=== PATIENT | male | born 1975 | race Two or more races ===

== ENCOUNTER → 2021-05-24 | Outpatient (CLI) | payer OTHER ==
[2021-05-24 10:50] LABS: Basophils # (auto) 0 10 ^3/uL (0-0.2); Basophils % (auto) 0.8 % (0.0-2.0); Eosinophils # (auto) 0 10 ^3/uL (0-0.8); Hematocrit 42.7 % (41.0-53.0); Hemoglobin 14.8 g/dL (13.5-17.5); Lymphocytes # (auto) 1.1 10 ^3/uL (0.4-5.4); Lymphocytes % (auto) 22.5 % (10.0-50.0); Mean Corpuscular Hemoglobin 32.5 pg (28.0-32.0); Mean Corpuscular Hgb Conc. 34.6 g/dL (32.0-36.0); Monocytes # (auto) 0.4 10 ^3/uL (0-1.3); Monocytes % (auto) 7.2 % (0.0-12.0); Neutrophils # (auto) 3.5 10 ^3/uL (1.6-8.6); Neutrophils % (auto) 68.5 % (37.0-80.0); Platelet Count (auto) 187 10^3/uL (140-450); Red Blood Cells 4.54 10^6/uL (4.5-5.90); Red Cell Distribution Width 12.9 % (11.8-14.3); White Blood Cell 5.1 10^3/uL (4.4-10.8)
[2021-05-24 11:41] LABS: Calcium 9.4 mg/dL (8.5-10.1); Potassium 4.4 mmol/L (3.5-5.1)
[2021-05-24 11:47] LABS: BUN/Creatinine Ratio 16.3; Bilirubin, Total 0.7 mg/dL (0.2-1.0); Total Protein 7.6 g/dL (6.4-8.2)
== END | disposition home or self-care (01) ==
LOC: LAB 10:33
PROVIDERS: ATTEND Nurse Practitioner Family
DX: K21.00 Gastro-esophageal reflux disease with esophagitis, without bleeding (principal); E55.9 Vitamin D deficiency, unspecified; R19.7 Diarrhea, unspecified; Z91.09 Other allergy status, other than to drugs and biological substances
CPT/HCPCS: 36415; 80053; 80061; 82306; 85025; 85049

== ENCOUNTER 2021-09-24 06:39 | Inpatient (IN) | payer OTHER ==
[~2021-09-24] VITALS: Ht 182.9 cm; Wt 66.2 kg
[2021-09-24 07:44] LABS: Basophils # (auto) 0 10 ^3/uL (0-0.2); Basophils % (auto) 0.1 % (0.0-2.0); Eosinophils # (auto) 0 10 ^3/uL (0-0.8); Hematocrit 40.9 % (41.0-53.0); Hemoglobin 14.4 g/dL (13.5-17.5); Lymphocytes # (auto) 0.4 10 ^3/uL (0.4-5.4); Lymphocytes % (auto) 2.5 % (10.0-50.0); Mean Corpuscular Hemoglobin 32.6 pg (28.0-32.0); Mean Corpuscular Hgb Conc. 35.2 g/dL (32.0-36.0); Mean Corpuscular Volume 92.4 fL (80.0-100.0); Monocytes # (auto) 0.4 10 ^3/uL (0-1.3); Monocytes % (auto) 2.7 % (0.0-12.0); Neutrophils # (auto) 13.5 10 ^3/uL (1.6-8.6); Neutrophils % (auto) 94.7 % (37.0-80.0); Nucleated Red Blood Cells % 0.1 %; Red Blood Cells 4.43 10^6/uL (4.5-5.90); White Blood Cell 14.2 10^3/uL (4.4-10.8)
[2021-09-24] MEDS ORDERED: DexAMETHasone SOD PHOS 10MG/1ML VIAL INJ IV ONE (07:45)
[2021-09-24] MEDS ORDERED: ZINC SULFATE 220mg CAP or TAB PO ONE (07:45)
[2021-09-24] MEDS ORDERED: AZITHROMYCIN 500MG/ 250ML 250 ML IV ONE (07:45)
[2021-09-24] MEDS ORDERED: cefTRIAXone 1GM/50ML D5W 50 ML IV ONE (07:45)
[2021-09-24] MEDS ORDERED: ASCORBIC ACID 500 MG TAB PO ONE (07:45)
[2021-09-24 08:02] LABS: Albumin 2.6 g/dL (3.4-5.0); Calcium 9.1 mg/dL (8.5-10.1); Potassium 4.4 mmol/L (3.5-5.1)
[2021-09-24 08:10] LABS: BUN/Creatinine Ratio 17.8; Bilirubin, Total 0.5 mg/dL (0.2-1.0); CRP High Sensitivity 10.6 mg/dL (< 0.3); Total Protein 7.4 g/dL (6.4-8.2)
[2021-09-24] MEDS ORDERED: MORPHINE SULFATE INJECTION 2 MG/ML SYRG IV PRN ×3 (09:45→16:00)
[2021-09-24] MEDS ORDERED: NITROGLYCERIN 0.4 MG SL TAB SL PRN ×2 (09:45→15:45)
[2021-09-24] MEDS ORDERED: ONDANSETRON HCL 4 MG/2 ML VIAL IV PRN ×2 (12:45→16:00)
[2021-09-24] MEDS ORDERED: ONDANSETRON HCL 4 MG/2 ML VIAL ONE (12:45)
[2021-09-24] MEDS ORDERED: ONDANSETRON HCL 4 MG/2 ML VIAL IV ONE (13:00)
[2021-09-24] MEDS ORDERED: ACETAMINOPHEN 500 MG TAB PO PRN (15:45)
[2021-09-24] MEDS ORDERED: REMDESIVIR PER PHARMACY 0 ML IV SCH (15:45)
[2021-09-24] MEDS ORDERED: PROMETHAZINE-DM 5 ML ORAL SYRUP PO ONE (16:00)
[2021-09-24 16:19] LABS: Urine Bacteria NONE SEEN /hpf (None Seen); Urine Blood Negative /uL (Negative); Urine Hyaline Cast FEW /lpf (0 - 2); Urine Mucus FEW (None Seen); Urine Specific Gravity 1.015 (1.001-1.035); Urine WBC 1 /hpf (0 - 3)
[2021-09-24] MEDS ORDERED: REMDESIVIR 200 MG in NS 210ml LOADING DOSE ADULT IV ONE (18:30)
[2021-09-24] MEDS: BUDESONIDE (INHALATION) 180 MCG IH IN SCH (18:56)
[2021-09-24] MEDS: ALBUTEROL SULF HFA 90MCG INH 200DOSE IN PRN (18:56)
[2021-09-24 20:34] VITALS: BP 114/74
[2021-09-24 21:05] VITALS: BP 110/73
[2021-09-24 22:00] VITALS: BP 110/73
[2021-09-24] MEDS: DOXYCYCLINE 100MG/250ML 250 ML IV SCH (22:00)
[2021-09-24] MEDS: ENOXAPARIN SOD 40 MG/0.4 ML SYRINGE SC SCH (22:00)
[2021-09-24] MEDS: FAMOTIDINE (10MG/ML) 2ML VL IV SCH (22:00)
[2021-09-25] MEDS ORDERED: PROMETHAZINE-DM 5 ML ORAL SYRUP PO PRN
[2021-09-25 00:29] LABS: Albumin 2.2 g/dL (3.4-5.0); BUN/Creatinine Ratio 23.7; Calcium 8.3 mg/dL (8.5-10.1); Magnesium 2.4 mg/dL (1.6-2.6); Potassium 4.4 mmol/L (3.5-5.1)
[2021-09-25 00:37] LABS: Bilirubin, Total 0.3 mg/dL (0.2-1.0); CRP High Sensitivity 7.49 mg/dL (< 0.3); Total Protein 6.6 g/dL (6.4-8.2)
[2021-09-25 00:38] LABS: Thyroid Stimulating Hormone 0.11 uIU/mL (0.358-3.74)
[2021-09-25 05:27] VITALS: BP 107/67
[2021-09-25 09:00] VITALS: BP 92/52
[2021-09-25] MEDS: CHOLECALCIFEROL (VITD3) 2,000 UNIT CAP/TAB PO SCH (09:01)
[2021-09-25] MEDS: ZINC SULFATE 220mg CAP or TAB PO SCH (09:02)
[2021-09-25] MEDS: ENOXAPARIN SOD 40 MG/0.4 ML SYRINGE SC SCH ×2 (09:02→21:08)
[2021-09-25] MEDS: IVERMECTIN 3 MG TAB PO SCH (09:02)
[2021-09-25] MEDS: DOXYCYCLINE 100MG/250ML 250 ML IV SCH ×2 (09:03→21:08)
[2021-09-25] MEDS: FAMOTIDINE (10MG/ML) 2ML VL IV SCH ×3 (09:05→22:00)
[2021-09-25] MEDS: BUDESONIDE (INHALATION) 180 MCG IH IN SCH ×2 (09:41→22:07)
[2021-09-25] MEDS: ALBUTEROL SULF HFA 90MCG INH 200DOSE IN PRN ×2 (09:41→22:07)
[2021-09-25] MEDS ORDERED: DexAMETHasone SOD PHOS 10MG/1ML VIAL INJ IV SCH (10:00)
[2021-09-25 10:48] LABS: Basophils # (auto) 0 10 ^3/uL (0-0.2); Basophils % (auto) 0.1 % (0.0-2.0); Eosinophils # (auto) 0 10 ^3/uL (0-0.8); Hematocrit 42.8 % (41.0-53.0); Hemoglobin 14.5 g/dL (13.5-17.5); Lymphocytes # (auto) 0.5 10 ^3/uL (0.4-5.4); Lymphocytes % (auto) 4.5 % (10.0-50.0); Mean Corpuscular Hemoglobin 31.5 pg (28.0-32.0); Mean Corpuscular Hgb Conc. 33.8 g/dL (32.0-36.0); Mean Corpuscular Volume 93.3 fL (80.0-100.0); Monocytes # (auto) 0.4 10 ^3/uL (0-1.3); Monocytes % (auto) 3.6 % (0.0-12.0); Neutrophils # (auto) 10.6 10 ^3/uL (1.6-8.6); Neutrophils % (auto) 91.8 % (37.0-80.0); Nucleated Red Blood Cells % 0.1 %; Red Blood Cells 4.59 10^6/uL (4.5-5.90); Red Cell Distribution Width 13.1 % (11.8-14.3); White Blood Cell 11.5 10^3/uL (4.4-10.8)
[2021-09-25 11:12] LABS: INR 1.04 (0.9-1.15); Partial Thromboplastin Time 38.9 sec (23.6-33.0)
[2021-09-25 11:19] LABS: Chloride 104 mmol/L (98-107); Potassium 4.1 mmol/L (3.5-5.1); Sodium 137 mmol/L (136-145)
[2021-09-25 11:30] LABS: Alanine Aminotransferase 26 U/L (16-61); Albumin 2.3 g/dL (3.4-5.0); Alkaline Phosphatase 51 U/L (45-117); Anion Gap 6 (5-15); Aspartate Aminotransferase 41 U/L (15-37); BUN/Creatinine Ratio 17.2; Bilirubin, Total 0.4 mg/dL (0.2-1.0); Blood Urea Nitrogen 16 mg/dL (7-18); Calcium 8.7 mg/dL (8.5-10.1); Carbon Dioxide 27 mmol/L (21-32); Cholesterol 128 mg/dL (< 200); GFR African American 112 mL/min; GFR Non-African American 93 mL/min; Glucose 113 mg/dL (74-106); HDL Cholesterol 37 mg/dL (40-59); LDL Cholesterol 78 mg/dL (< 100); Magnesium 2.6 mg/dL (1.6-2.6); Phosphorus 3.2 mg/dL (2.5-4.90); Triglycerides 180 mg/dL (< 150)
[2021-09-25 12:31] VITALS: BP 104/74
[2021-09-25] MEDS: REMDESIVIR 100mg 100 MG in SODIUM CHL 0.9% 230 ML IV SCH (15:59)
[2021-09-25 17:00] VITALS: BP 100/65
[2021-09-25] MEDS ORDERED: ACETAMINOPHEN 500 MG TAB PO PRN (17:30)
[2021-09-25 22:00] VITALS: BP 104/60
[2021-09-26] VITALS (7 sets, daily range): BP systolic 94–118; BP diastolic 60–79
[2021-09-26] MEDS: BUDESONIDE (INHALATION) 180 MCG IH IN SCH ×2 (06:11→20:18)
[2021-09-26] MEDS: ALBUTEROL SULF HFA 90MCG INH 200DOSE IN PRN ×2 (06:11→20:55)
[2021-09-26] MEDS: FAMOTIDINE (10MG/ML) 2ML VL IV SCH ×2 (10:00→21:35)
[2021-09-26] MEDS ORDERED: FUROSEMIDE 20 MG/2 ML VIAL IV ONE (10:30)
[2021-09-26] MEDS ORDERED: POTASSIUM CHL 20 Meq TABLET PO ONE (10:30)
[2021-09-26 10:57] LABS: Calcium 8.8 mg/dL (8.5-10.1)
[2021-09-26 10:59] LABS: BUN/Creatinine Ratio 18.9
[2021-09-26] MEDS: ZINC SULFATE 220mg CAP or TAB PO SCH (11:16)
[2021-09-26] MEDS: CHOLECALCIFEROL (VITD3) 2,000 UNIT CAP/TAB PO SCH (11:17)
[2021-09-26] MEDS: IVERMECTIN 3 MG TAB PO SCH (11:17)
[2021-09-26] MEDS: ENOXAPARIN SOD 40 MG/0.4 ML SYRINGE SC SCH ×2 (11:17→21:35)
[2021-09-26] MEDS: DOXYCYCLINE 100MG/250ML 250 ML IV SCH ×2 (11:18→21:34)
[2021-09-26] MEDS: REMDESIVIR 100mg 100 MG in SODIUM CHL 0.9% 230 ML IV SCH (15:06)
[2021-09-26] MEDS: DexAMETHasone SOD PHOS 10MG/1ML VIAL INJ IV SCH (21:34)
[2021-09-27 05:00] VITALS: BP 91/55
[2021-09-27 05:58] LABS: Hematocrit 44.7 % (41.0-53.0); Hemoglobin 15.3 g/dL (13.5-17.5); Mean Corpuscular Hemoglobin 31.9 pg (28.0-32.0); Mean Corpuscular Hgb Conc. 34.1 g/dL (32.0-36.0); Mean Corpuscular Volume 93.5 fL (80.0-100.0); Red Blood Cells 4.78 10^6/uL (4.5-5.90); White Blood Cell 8.5 10^3/uL (4.4-10.8)
[2021-09-27 06:20] LABS: BUN/Creatinine Ratio 23.5; Calcium 9.1 mg/dL (8.5-10.1); Potassium 5.1 mmol/L (3.5-5.1)
[2021-09-27 06:34] LABS: Basophils % (manual) 0 (0.0-2.0); Blast Cells 0; Eosinophils % (manual) 0 (0-7); Metamyelocytes % 0; Myelocytes % 0; Promyelocytes % 0; Reactive Lymphocytes 0
[2021-09-27] MEDS: BUDESONIDE (INHALATION) 180 MCG IH IN SCH ×2 (07:49→22:42)
[2021-09-27 08:00] VITALS: BP 105/67
[2021-09-27 08:48] LABS: Band Neutrophils % (manual) 2; Lymphocytes % (manual) 8 (10.0-50.0); Monocytes % (manual) 8 (0-12)
[2021-09-27] MEDS: FAMOTIDINE (10MG/ML) 2ML VL IV SCH ×2 (09:41→21:49)
[2021-09-27] MEDS: DexAMETHasone SOD PHOS 10MG/1ML VIAL INJ IV SCH ×2 (09:41→21:40)
[2021-09-27] MEDS: DOXYCYCLINE 100MG/250ML 250 ML IV SCH ×2 (09:41→21:41)
[2021-09-27] MEDS: IVERMECTIN 3 MG TAB PO SCH (09:42)
[2021-09-27] MEDS: ZINC SULFATE 220mg CAP or TAB PO SCH (09:42)
[2021-09-27] MEDS: CHOLECALCIFEROL (VITD3) 2,000 UNIT CAP/TAB PO SCH (09:43)
[2021-09-27] MEDS: ENOXAPARIN SOD 40 MG/0.4 ML SYRINGE SC SCH ×2 (09:43→21:41)
[2021-09-27 11:58] VITALS: BP 101/62
[2021-09-27] MEDS ORDERED: FUROSEMIDE 20 MG/2 ML VIAL IV ONE (12:00)
[2021-09-27] MEDS ORDERED: SALINE 0.65 % NASAL SPRAY 45ML BOTTLE EACHNOSTRI ONE (12:00)
[2021-09-27] MEDS: REMDESIVIR 100mg 100 MG in SODIUM CHL 0.9% 230 ML IV SCH (15:44)
[2021-09-27 16:24] VITALS: BP 112/75
[2021-09-27] MEDS: SALINE 0.65 % NASAL SPRAY 45ML BOTTLE EACHNOSTRI SCH ×2 (18:00→21:40)
[2021-09-27 22:00] VITALS: BP 112/73
[2021-09-27] MEDS: ALBUTEROL SULF HFA 90MCG INH 200DOSE IN PRN (22:42)
[2021-09-28 00:14] VITALS: BP 112/73
[2021-09-28 05:26] VITALS: BP 99/56
[2021-09-28] MEDS: SALINE 0.65 % NASAL SPRAY 45ML BOTTLE EACHNOSTRI SCH ×4 (06:00→21:48)
[2021-09-28] MEDS: BUDESONIDE (INHALATION) 180 MCG IH IN SCH ×2 (06:24→20:10)
[2021-09-28] MEDS: ALBUTEROL SULF HFA 90MCG INH 200DOSE IN PRN ×2 (06:24→20:11)
[2021-09-28 06:56] LABS: Basophils # (auto) 0 10 ^3/uL (0-0.2); Basophils % (auto) 0.1 % (0.0-2.0); Eosinophils # (auto) 0 10 ^3/uL (0-0.8); Hematocrit 43.3 % (41.0-53.0); Hemoglobin 14.4 g/dL (13.5-17.5); Lymphocytes # (auto) 0.6 10 ^3/uL (0.4-5.4); Lymphocytes % (auto) 6.3 % (10.0-50.0); Mean Corpuscular Hemoglobin 30.8 pg (28.0-32.0); Mean Corpuscular Hgb Conc. 33.3 g/dL (32.0-36.0); Mean Corpuscular Volume 92.5 fL (80.0-100.0); Monocytes # (auto) 0.7 10 ^3/uL (0-1.3); Monocytes % (auto) 7.2 % (0.0-12.0); Neutrophils % (auto) 86.4 % (37.0-80.0); Nucleated Red Blood Cells % 0.1 %; Red Blood Cells 4.69 10^6/uL (4.5-5.90); Red Cell Distribution Width 12.8 % (11.8-14.3); White Blood Cell 9.3 10^3/uL (4.4-10.8)
[2021-09-28 07:17] LABS: BUN/Creatinine Ratio 24.7; Potassium 4.3 mmol/L (3.5-5.1)
[2021-09-28 09:10] VITALS: BP 93/57
[2021-09-28] MEDS: DOXYCYCLINE 100MG/250ML 250 ML IV SCH ×2 (09:17→21:49)
[2021-09-28] MEDS: ENOXAPARIN SOD 40 MG/0.4 ML SYRINGE SC SCH ×2 (09:18→21:49)
[2021-09-28] MEDS: DexAMETHasone SOD PHOS 10MG/1ML VIAL INJ IV SCH ×2 (09:18→21:48)
[2021-09-28] MEDS: IVERMECTIN 3 MG TAB PO SCH (09:18)
[2021-09-28] MEDS: ZINC SULFATE 220mg CAP or TAB PO SCH (09:18)
[2021-09-28] MEDS: CHOLECALCIFEROL (VITD3) 2,000 UNIT CAP/TAB PO SCH (09:18)
[2021-09-28] MEDS: FAMOTIDINE (10MG/ML) 2ML VL IV SCH ×2 (09:19→21:49)
[2021-09-28] MEDS ORDERED: FUROSEMIDE 20 MG TAB PO ONE (11:00)
[2021-09-28] MEDS ORDERED: POTASSIUM CHL 20 Meq TABLET PO ONE (11:00)
[2021-09-28 13:20] VITALS: BP 109/68
[2021-09-28] MEDS: REMDESIVIR 100mg 100 MG in SODIUM CHL 0.9% 230 ML IV SCH (14:32)
[2021-09-28 16:46] VITALS: BP 119/71
[2021-09-28 22:00] VITALS: BP 115/74
[2021-09-29 05:00] VITALS: BP 108/70
[2021-09-29] MEDS: SALINE 0.65 % NASAL SPRAY 45ML BOTTLE EACHNOSTRI SCH ×4 (05:45→22:00)
[2021-09-29] MEDS: BUDESONIDE (INHALATION) 180 MCG IH IN SCH ×3 (06:40→22:16)
[2021-09-29] MEDS: ALBUTEROL SULF HFA 90MCG INH 200DOSE IN PRN ×2 (06:40→22:17)
[2021-09-29 09:00] VITALS: BP 83/53
[2021-09-29] MEDS: FAMOTIDINE (10MG/ML) 2ML VL IV SCH ×2 (10:00→20:55)
[2021-09-29] MEDS: DexAMETHasone SOD PHOS 10MG/1ML VIAL INJ IV SCH ×2 (10:29→20:55)
[2021-09-29] MEDS: DOXYCYCLINE 100MG/250ML 250 ML IV SCH (10:29)
[2021-09-29] MEDS: ZINC SULFATE 220mg CAP or TAB PO SCH (10:30)
[2021-09-29] MEDS: FUROSEMIDE 20 MG TAB PO SCH (10:30)
[2021-09-29] MEDS: POTASSIUM CHL 20 Meq TABLET PO SCH (10:30)
[2021-09-29] MEDS: CHOLECALCIFEROL (VITD3) 2,000 UNIT CAP/TAB PO SCH (10:31)
[2021-09-29] MEDS: ENOXAPARIN SOD 40 MG/0.4 ML SYRINGE SC SCH ×2 (10:31→20:55)
[2021-09-29] MEDS: IVERMECTIN 3 MG TAB PO SCH (10:31)
[2021-09-29 12:42] VITALS: BP 120/62
[2021-09-29 14:35] LABS: BUN/Creatinine Ratio 20.7; Calcium 8.8 mg/dL (8.5-10.1)
[2021-09-29 17:18] VITALS: BP 113/64
[2021-09-29 20:00] VITALS: BP 105/85
[2021-09-29 22:00] VITALS: BP 120/73
[2021-09-30 05:00] VITALS: BP 107/68
[2021-09-30] MEDS: SALINE 0.65 % NASAL SPRAY 45ML BOTTLE EACHNOSTRI SCH ×4 (06:14→22:00)
[2021-09-30] MEDS: BUDESONIDE (INHALATION) 180 MCG IH IN SCH ×3 (07:20→20:43)
[2021-09-30] MEDS: ALBUTEROL SULF HFA 90MCG INH 200DOSE IN PRN ×2 (07:21→20:43)
[2021-09-30 08:00] VITALS: BP 103/68
[2021-09-30 09:00] VITALS: BP 103/68
[2021-09-30] MEDS: FAMOTIDINE (10MG/ML) 2ML VL IV SCH ×2 (10:00→22:27)
[2021-09-30] MEDS: POTASSIUM CHL 20 Meq TABLET PO SCH (10:11)
[2021-09-30] MEDS: DexAMETHasone SOD PHOS 10MG/1ML VIAL INJ IV SCH ×2 (10:11→22:27)
[2021-09-30] MEDS: ZINC SULFATE 220mg CAP or TAB PO SCH (10:11)
[2021-09-30] MEDS: CHOLECALCIFEROL (VITD3) 2,000 UNIT CAP/TAB PO SCH (10:12)
[2021-09-30] MEDS: FUROSEMIDE 20 MG TAB PO SCH (10:12)
[2021-09-30] MEDS: ENOXAPARIN SOD 40 MG/0.4 ML SYRINGE SC SCH ×2 (10:12→22:28)
[2021-09-30] MEDS ORDERED: DOXYCYCLINE 100MG/250ML 250 ML IV ONE (11:15)
[2021-09-30 12:41] VITALS: BP 117/71
[2021-09-30] MEDS ORDERED: IOHEXOL 350 MG/ML 100ML IJ ONE (16:45)
[2021-09-30 17:00] VITALS: BP 119/76
[2021-09-30 17:32] LABS: Potassium 4.4 mmol/L (3.5-5.1)
[2021-09-30 17:37] LABS: INR 1.1 (0.9-1.15)
[2021-09-30 17:41] LABS: CRP High Sensitivity 8.24 mg/dL (< 0.3)
[2021-09-30 22:00] VITALS: BP 101/62
[2021-09-30] MEDS ORDERED: DOXYCYCLINE 100MG/250ML 250 ML IV SCH (22:00)
[2021-10-01 00:03] VITALS: BP 119/76
[2021-10-01 05:00] VITALS: BP 101/66
[2021-10-01] MEDS: SALINE 0.65 % NASAL SPRAY 45ML BOTTLE EACHNOSTRI SCH ×4 (06:13→21:27)
[2021-10-01] MEDS: ALBUTEROL SULF HFA 90MCG INH 200DOSE IN PRN (07:49)
[2021-10-01] MEDS: BUDESONIDE (INHALATION) 180 MCG IH IN SCH ×2 (07:49→21:18)
[2021-10-01 08:00] VITALS: BP_SYST 103; BP_SYST 109; BP_DIAS 68; BP_DIAS 70
[2021-10-01] MEDS: ZINC SULFATE 220mg CAP or TAB PO SCH (09:59)
[2021-10-01] MEDS: FAMOTIDINE (10MG/ML) 2ML VL IV SCH ×3 (09:59→21:44)
[2021-10-01] MEDS: POTASSIUM CHL 20 Meq TABLET PO SCH (09:59)
[2021-10-01] MEDS: FUROSEMIDE 20 MG TAB PO SCH (10:00)
[2021-10-01] MEDS: CHOLECALCIFEROL (VITD3) 2,000 UNIT CAP/TAB PO SCH (10:00)
[2021-10-01] MEDS: DexAMETHasone SOD PHOS 4 MG/1ML SDV INJ IV SCH ×2 (10:25→21:39)
[2021-10-01] MEDS: ENOXAPARIN SOD 40 MG/0.4 ML SYRINGE SC SCH ×2 (10:25→21:44)
[2021-10-01 13:00] VITALS: BP 108/70
[2021-10-01] MEDS ORDERED: MEROPENEM 1GM IVPB 100 ML IV ONE (13:00)
[2021-10-01 16:58] LABS: Potassium 4.4 mmol/L (3.5-5.1)
[2021-10-01 17:00] VITALS: BP 115/48
[2021-10-01 17:10] LABS: BUN/Creatinine Ratio 23.8; CRP High Sensitivity 3.05 mg/dL (< 0.3); Calcium 8.7 mg/dL (8.5-10.1)
[2021-10-01] MEDS: MEROPENEM 1GM IVPB 100 ML IV SCH (21:42)
[2021-10-01 22:00] VITALS: BP 110/77
[2021-10-01] MEDS ORDERED: TOCILIZUMAB 400 MG in SODIUM CHL 0.9% 80 ML IV SCH (22:00)
[2021-10-02 05:23] VITALS: BP 112/80
[2021-10-02] MEDS: BUDESONIDE (INHALATION) 180 MCG IH IN SCH ×2 (06:09→20:37)
[2021-10-02] MEDS: ALBUTEROL SULF HFA 90MCG INH 200DOSE IN PRN ×2 (06:09→20:37)
[2021-10-02] MEDS: SALINE 0.65 % NASAL SPRAY 45ML BOTTLE EACHNOSTRI SCH ×4 (06:37→21:23)
[2021-10-02] MEDS: MEROPENEM 1GM IVPB 100 ML IV SCH ×3 (06:40→21:31)
[2021-10-02 09:00] VITALS: BP 110/74
[2021-10-02] MEDS: ZINC SULFATE 220mg CAP or TAB PO SCH (11:08)
[2021-10-02] MEDS: FAMOTIDINE (10MG/ML) 2ML VL IV SCH ×2 (11:08→21:38)
[2021-10-02] MEDS: DexAMETHasone SOD PHOS 4 MG/1ML SDV INJ IV SCH ×2 (11:08→21:30)
[2021-10-02] MEDS: ENOXAPARIN SOD 40 MG/0.4 ML SYRINGE SC SCH ×2 (11:09→21:30)
[2021-10-02] MEDS: CHOLECALCIFEROL (VITD3) 2,000 UNIT CAP/TAB PO SCH (11:09)
[2021-10-02] MEDS: POTASSIUM CHL 20 Meq TABLET PO SCH (11:09)
[2021-10-02] MEDS: FUROSEMIDE 20 MG TAB PO SCH (11:09)
[2021-10-02 13:00] VITALS: BP 124/79
[2021-10-02 13:39] LABS: Basophils # (auto) 0.1 10 ^3/uL (0-0.2); Basophils % (auto) 0.6 % (0.0-2.0); Eosinophils # (auto) 0 10 ^3/uL (0-0.8); Eosinophils % (auto) 0.1 % (0.0-7.0); Hematocrit 41.3 % (41.0-53.0); Hemoglobin 14.1 g/dL (13.5-17.5); Lymphocytes # (auto) 0.4 10 ^3/uL (0.4-5.4); Mean Corpuscular Hemoglobin 31.3 pg (28.0-32.0); Mean Corpuscular Hgb Conc. 34.1 g/dL (32.0-36.0); Mean Corpuscular Volume 91.5 fL (80.0-100.0); Monocytes # (auto) 0.7 10 ^3/uL (0-1.3); Monocytes % (auto) 3.6 % (0.0-12.0); Neutrophils # (auto) 19.7 10 ^3/uL (1.6-8.6); Neutrophils % (auto) 93.7 % (37.0-80.0); Red Blood Cells 4.51 10^6/uL (4.5-5.90); Red Cell Distribution Width 13.2 % (11.8-14.3)
[2021-10-02 13:58] LABS: Calcium 8.5 mg/dL (8.5-10.1); Potassium 4.5 mmol/L (3.5-5.1)
[2021-10-02 14:00] LABS: BUN/Creatinine Ratio 28.1
[2021-10-02 17:00] VITALS: BP 131/91
[2021-10-02 22:00] VITALS: BP 114/71
[2021-10-03 05:24] VITALS: BP 110/68
[2021-10-03] MEDS: SALINE 0.65 % NASAL SPRAY 45ML BOTTLE EACHNOSTRI SCH ×4 (05:48→21:21)
[2021-10-03] MEDS: MEROPENEM 1GM IVPB 100 ML IV SCH ×3 (06:17→21:21)
[2021-10-03] MEDS: ALBUTEROL SULF HFA 90MCG INH 200DOSE IN PRN ×2 (07:09→14:42)
[2021-10-03] MEDS: BUDESONIDE (INHALATION) 180 MCG IH IN SCH ×3 (07:09→22:32)
[2021-10-03 09:30] VITALS: BP 106/72
[2021-10-03] MEDS: FAMOTIDINE (10MG/ML) 2ML VL IV SCH ×3 (10:00→22:00)
[2021-10-03] MEDS: DexAMETHasone SOD PHOS 4 MG/1ML SDV INJ IV SCH ×2 (10:24→21:21)
[2021-10-03] MEDS: ZINC SULFATE 220mg CAP or TAB PO SCH (10:24)
[2021-10-03] MEDS: POTASSIUM CHL 20 Meq TABLET PO SCH (10:26)
[2021-10-03] MEDS: FUROSEMIDE 20 MG TAB PO SCH (10:27)
[2021-10-03] MEDS: CHOLECALCIFEROL (VITD3) 2,000 UNIT CAP/TAB PO SCH (10:27)
[2021-10-03] MEDS: ENOXAPARIN SOD 40 MG/0.4 ML SYRINGE SC SCH ×2 (10:28→21:22)
[2021-10-03] MEDS ORDERED: ACETYLCYSTEINE 20%(200MG/ML) SOL 4ML NEB ONE (10:45)
[2021-10-03 11:05] LABS: Basophils # (auto) 0 10 ^3/uL (0-0.2); Basophils % (auto) 0.2 % (0.0-2.0); Eosinophils # (auto) 0 10 ^3/uL (0-0.8); Eosinophils % (auto) 0.2 % (0.0-7.0); Hematocrit 44.4 % (41.0-53.0); Lymphocytes # (auto) 0.9 10 ^3/uL (0.4-5.4); Lymphocytes % (auto) 5.6 % (10.0-50.0); Mean Corpuscular Hemoglobin 30.9 pg (28.0-32.0); Mean Corpuscular Hgb Conc. 33.8 g/dL (32.0-36.0); Mean Corpuscular Volume 91.5 fL (80.0-100.0); Monocytes # (auto) 0.8 10 ^3/uL (0-1.3); Monocytes % (auto) 4.8 % (0.0-12.0); Neutrophils # (auto) 14.5 10 ^3/uL (1.6-8.6); Neutrophils % (auto) 89.2 % (37.0-80.0); Red Blood Cells 4.86 10^6/uL (4.5-5.90); White Blood Cell 16.2 10^3/uL (4.4-10.8)
[2021-10-03 11:59] LABS: Calcium 8.8 mg/dL (8.5-10.1); Potassium 3.9 mmol/L (3.5-5.1)
[2021-10-03] MEDS: Ensure HIGH Protein Chocolate 8oz Bottle PO SCH ×2 (12:00→18:24)
[2021-10-03 12:02] LABS: BUN/Creatinine Ratio 23.5; Bilirubin, Total 0.4 mg/dL (0.2-1.0); Total Protein 6.8 g/dL (6.4-8.2)
[2021-10-03 13:30] VITALS: BP 115/68
[2021-10-03] MEDS: ACETYLCYSTEINE 20%(200MG/ML) SOL 4ML NEB SCH ×3 (14:30→22:32)
[2021-10-03 16:34] VITALS: BP 119/78
[2021-10-03 22:00] VITALS: BP 102/72
[2021-10-03] MEDS ORDERED: ALBUTEROL SULF 2.5 MG/0.5ML(0.5%) NEB SOLN ONE (22:29)
[2021-10-03] MEDS: ALBUTEROL SULF 2.5 MG/0.5ML(0.5%) NEB SOLN NEB SCH (22:33)
[2021-10-04 05:00] VITALS: BP 102/72
[2021-10-04] MEDS: MEROPENEM 1GM IVPB 100 ML IV SCH ×3 (06:00→22:50)
[2021-10-04] MEDS: SALINE 0.65 % NASAL SPRAY 45ML BOTTLE EACHNOSTRI SCH ×4 (06:00→22:32)
[2021-10-04] MEDS: Ensure HIGH Protein Chocolate 8oz Bottle PO SCH ×3 (08:00→18:06)
[2021-10-04] MEDS: ALBUTEROL SULF 2.5 MG/0.5ML(0.5%) NEB SOLN NEB SCH ×3 (08:13→19:46)
[2021-10-04] MEDS: ACETYLCYSTEINE 20%(200MG/ML) SOL 4ML NEB SCH ×3 (08:13→18:06)
[2021-10-04] MEDS: BUDESONIDE (INHALATION) 180 MCG IH IN SCH ×2 (08:16→19:47)
[2021-10-04 09:00] VITALS: BP 122/68
[2021-10-04] MEDS: DexAMETHasone SOD PHOS 4 MG/1ML SDV INJ IV SCH ×2 (09:54→22:32)
[2021-10-04] MEDS: FAMOTIDINE (10MG/ML) 2ML VL IV SCH ×2 (09:55→22:00)
[2021-10-04] MEDS: ZINC SULFATE 220mg CAP or TAB PO SCH (09:55)
[2021-10-04] MEDS: POTASSIUM CHL 20 Meq TABLET PO SCH (09:58)
[2021-10-04] MEDS: CHOLECALCIFEROL (VITD3) 2,000 UNIT CAP/TAB PO SCH (10:00)
[2021-10-04] MEDS: FUROSEMIDE 20 MG TAB PO SCH (10:00)
[2021-10-04] MEDS: ENOXAPARIN SOD 40 MG/0.4 ML SYRINGE SC SCH ×2 (10:01→22:33)
[2021-10-04 13:00] VITALS: BP 113/78
[2021-10-04 16:40] VITALS: BP 123/82
[2021-10-04] MEDS ORDERED: LINEZOLID 600MG/300ML 300 ML IV SCH (20:00)
[2021-10-04 21:30] VITALS: BP 116/73
[2021-10-05] MEDS: ACETYLCYSTEINE 20%(200MG/ML) SOL 4ML NEB SCH ×4 (00:20→20:39)
[2021-10-05] MEDS: ALBUTEROL SULF 2.5 MG/0.5ML(0.5%) NEB SOLN NEB SCH ×4 (00:20→20:39)
[2021-10-05 00:55] VITALS: BP 116/73
[2021-10-05 04:54] VITALS: BP 121/67
[2021-10-05] MEDS: SALINE 0.65 % NASAL SPRAY 45ML BOTTLE EACHNOSTRI SCH ×4 (06:03→22:26)
[2021-10-05] MEDS: MEROPENEM 1GM IVPB 100 ML IV SCH ×3 (06:03→22:27)
[2021-10-05 07:10] LABS: Potassium 4.8 mmol/L (3.5-5.1)
[2021-10-05 07:12] LABS: Basophils # (auto) 0 10 ^3/uL (0-0.2); Basophils % (auto) 0.2 % (0.0-2.0); Eosinophils # (auto) 0 10 ^3/uL (0-0.8); Eosinophils % (auto) 0.2 % (0.0-7.0); Hematocrit 42.1 % (41.0-53.0); Hemoglobin 14.3 g/dL (13.5-17.5); Lymphocytes # (auto) 0.7 10 ^3/uL (0.4-5.4); Lymphocytes % (auto) 4.6 % (10.0-50.0); Mean Corpuscular Hemoglobin 31.8 pg (28.0-32.0); Mean Corpuscular Volume 93.5 fL (80.0-100.0); Monocytes # (auto) 0.6 10 ^3/uL (0-1.3); Monocytes % (auto) 4.4 % (0.0-12.0); Neutrophils # (auto) 12.9 10 ^3/uL (1.6-8.6); Neutrophils % (auto) 90.6 % (37.0-80.0); Red Blood Cells 4.51 10^6/uL (4.5-5.90); Red Cell Distribution Width 13.4 % (11.8-14.3); White Blood Cell 14.2 10^3/uL (4.4-10.8)
[2021-10-05 07:17] LABS: BUN/Creatinine Ratio 31.7; Calcium 8.7 mg/dL (8.5-10.1)
[2021-10-05] MEDS: BUDESONIDE (INHALATION) 180 MCG IH IN SCH ×2 (08:00→20:09)
[2021-10-05 09:00] VITALS: BP 115/75
[2021-10-05] MEDS: FAMOTIDINE (10MG/ML) 2ML VL IV SCH ×3 (10:00→22:00)
[2021-10-05] MEDS: Ensure HIGH Protein Chocolate 8oz Bottle PO SCH ×3 (10:36→18:13)
[2021-10-05] MEDS: DexAMETHasone SOD PHOS 4 MG/1ML SDV INJ IV SCH ×2 (10:37→22:26)
[2021-10-05] MEDS: ZINC SULFATE 220mg CAP or TAB PO SCH (10:38)
[2021-10-05] MEDS: POTASSIUM CHL 20 Meq TABLET PO SCH (10:38)
[2021-10-05] MEDS: CHOLECALCIFEROL (VITD3) 2,000 UNIT CAP/TAB PO SCH (10:39)
[2021-10-05] MEDS: FUROSEMIDE 20 MG TAB PO SCH (10:39)
[2021-10-05] MEDS: ENOXAPARIN SOD 40 MG/0.4 ML SYRINGE SC SCH ×2 (10:40→22:28)
[2021-10-05] MEDS ORDERED: FUROSEMIDE 20 MG/2 ML VIAL IV ONE (11:30)
[2021-10-05] MEDS ORDERED: POTASSIUM CHL 20 Meq TABLET PO ONE (11:30)
[2021-10-05] MEDS: LINEZOLID 600MG/300ML 300 ML IV SCH ×2 (12:04→22:27)
[2021-10-05 13:00] VITALS: BP 105/67
[2021-10-05 16:40] VITALS: BP 115/77
[2021-10-05 21:57] VITALS: BP 123/74
[2021-10-06] MEDS: ALBUTEROL SULF 2.5 MG/0.5ML(0.5%) NEB SOLN NEB SCH ×4 (00:55→19:37)
[2021-10-06] MEDS: ACETYLCYSTEINE 20%(200MG/ML) SOL 4ML NEB SCH ×4 (00:55→19:37)
[2021-10-06 05:00] VITALS: BP 97/61
[2021-10-06] MEDS: MEROPENEM 1GM IVPB 100 ML IV SCH ×4 (06:44→22:31)
[2021-10-06] MEDS: SALINE 0.65 % NASAL SPRAY 45ML BOTTLE EACHNOSTRI SCH ×4 (06:44→22:16)
[2021-10-06] MEDS: Ensure HIGH Protein Chocolate 8oz Bottle PO SCH ×3 (08:00→18:03)
[2021-10-06 09:21] VITALS: BP 111/73
[2021-10-06] MEDS: POTASSIUM CHL 20 Meq TABLET PO SCH (09:54)
[2021-10-06] MEDS: ZINC SULFATE 220mg CAP or TAB PO SCH (09:54)
[2021-10-06] MEDS: LINEZOLID 600MG/300ML 300 ML IV SCH ×2 (09:54→22:00)
[2021-10-06] MEDS: FUROSEMIDE 20 MG TAB PO SCH (09:55)
[2021-10-06] MEDS: ENOXAPARIN SOD 40 MG/0.4 ML SYRINGE SC SCH ×2 (09:55→22:31)
[2021-10-06] MEDS: CHOLECALCIFEROL (VITD3) 2,000 UNIT CAP/TAB PO SCH (09:55)
[2021-10-06] MEDS: DexAMETHasone SOD PHOS 4 MG/1ML SDV INJ IV SCH ×2 (09:57→22:30)
[2021-10-06] MEDS: FAMOTIDINE (10MG/ML) 2ML VL IV SCH ×2 (09:57→22:00)
[2021-10-06] MEDS: BUDESONIDE (INHALATION) 180 MCG IH IN SCH ×2 (10:07→21:38)
[2021-10-06 12:57] VITALS: BP 107/65
[2021-10-06 17:10] VITALS: BP 135/76
[2021-10-06 22:00] VITALS: BP 117/66
[2021-10-07] MEDS: ACETYLCYSTEINE 20%(200MG/ML) SOL 4ML NEB SCH ×5 (00:50→20:23)
[2021-10-07] MEDS: ALBUTEROL SULF 2.5 MG/0.5ML(0.5%) NEB SOLN NEB SCH ×5 (00:50→20:22)
[2021-10-07 05:00] VITALS: BP 108/69
[2021-10-07] MEDS: MEROPENEM 1GM IVPB 100 ML IV SCH ×3 (06:00→21:09)
[2021-10-07] MEDS: SALINE 0.65 % NASAL SPRAY 45ML BOTTLE EACHNOSTRI SCH ×4 (06:42→21:09)
[2021-10-07 07:36] LABS: Basophils # (auto) 0 10 ^3/uL (0-0.2); Basophils % (auto) 0.3 % (0.0-2.0); Eosinophils # (auto) 0.3 10 ^3/uL (0-0.8); Eosinophils % (auto) 1.9 % (0.0-7.0); Hematocrit 44.7 % (41.0-53.0); Lymphocytes # (auto) 1.1 10 ^3/uL (0.4-5.4); Lymphocytes % (auto) 5.8 % (10.0-50.0); Mean Corpuscular Hemoglobin 31.5 pg (28.0-32.0); Mean Corpuscular Hgb Conc. 33.5 g/dL (32.0-36.0); Monocytes # (auto) 1.1 10 ^3/uL (0-1.3); Neutrophils # (auto) 15.5 10 ^3/uL (1.6-8.6); Nucleated Red Blood Cells % 0.4 %; Red Blood Cells 4.76 10^6/uL (4.5-5.90); Red Cell Distribution Width 13.3 % (11.8-14.3); White Blood Cell 18.1 10^3/uL (4.4-10.8)
[2021-10-07 07:48] LABS: Potassium 4.8 mmol/L (3.5-5.1)
[2021-10-07 07:52] LABS: BUN/Creatinine Ratio 31.1; Calcium 8.5 mg/dL (8.5-10.1)
[2021-10-07 09:00] VITALS: BP 109/78
[2021-10-07] MEDS: FAMOTIDINE (10MG/ML) 2ML VL IV SCH ×2 (10:00→21:09)
[2021-10-07] MEDS: Ensure HIGH Protein Chocolate 8oz Bottle PO SCH ×3 (10:10→17:52)
[2021-10-07] MEDS: DexAMETHasone SOD PHOS 4 MG/1ML SDV INJ IV SCH ×2 (10:11→21:05)
[2021-10-07] MEDS: LINEZOLID 600MG/300ML 300 ML IV SCH ×2 (10:11→21:10)
[2021-10-07] MEDS: ZINC SULFATE 220mg CAP or TAB PO SCH (10:13)
[2021-10-07] MEDS: FUROSEMIDE 20 MG TAB PO SCH (10:14)
[2021-10-07] MEDS: POTASSIUM CHL 20 Meq TABLET PO SCH (10:14)
[2021-10-07] MEDS: CHOLECALCIFEROL (VITD3) 2,000 UNIT CAP/TAB PO SCH (10:15)
[2021-10-07] MEDS: ENOXAPARIN SOD 40 MG/0.4 ML SYRINGE SC SCH ×2 (10:15→21:12)
[2021-10-07 13:00] VITALS: BP 110/73
[2021-10-07] MEDS: BUDESONIDE (INHALATION) 180 MCG IH IN SCH ×2 (15:06→22:01)
[2021-10-07 17:00] VITALS: BP 139/85
[2021-10-07 22:00] VITALS: BP 123/76
[2021-10-08] MEDS: ALBUTEROL SULF 2.5 MG/0.5ML(0.5%) NEB SOLN NEB SCH ×5 (00:55→23:54)
[2021-10-08] MEDS: ACETYLCYSTEINE 20%(200MG/ML) SOL 4ML NEB SCH ×5 (00:56→23:54)
[2021-10-08 05:00] VITALS: BP 120/80
[2021-10-08] MEDS: MEROPENEM 1GM IVPB 100 ML IV SCH ×3 (05:09→21:19)
[2021-10-08] MEDS: SALINE 0.65 % NASAL SPRAY 45ML BOTTLE EACHNOSTRI SCH ×4 (05:09→21:18)
[2021-10-08] MEDS: BUDESONIDE (INHALATION) 180 MCG IH IN SCH ×2 (06:55→19:22)
[2021-10-08 08:00] VITALS: BP 102/65
[2021-10-08 09:00] VITALS: BP 102/65
[2021-10-08] MEDS: DexAMETHasone SOD PHOS 4 MG/1ML SDV INJ IV SCH ×2 (10:21→21:18)
[2021-10-08] MEDS: Ensure HIGH Protein Chocolate 8oz Bottle PO SCH ×3 (10:21→18:04)
[2021-10-08] MEDS: POTASSIUM CHL 20 Meq TABLET PO SCH (10:22)
[2021-10-08] MEDS: ENOXAPARIN SOD 40 MG/0.4 ML SYRINGE SC SCH ×2 (10:22→21:19)
[2021-10-08] MEDS: ZINC SULFATE 220mg CAP or TAB PO SCH (10:22)
[2021-10-08] MEDS: LINEZOLID 600MG/300ML 300 ML IV SCH ×2 (10:22→21:22)
[2021-10-08] MEDS: FAMOTIDINE (10MG/ML) 2ML VL IV SCH ×2 (10:22→21:19)
[2021-10-08] MEDS: CHOLECALCIFEROL (VITD3) 2,000 UNIT CAP/TAB PO SCH (10:22)
[2021-10-08] MEDS: FUROSEMIDE 20 MG TAB PO SCH (10:23)
[2021-10-08 13:10] VITALS: BP 119/75
[2021-10-08 16:46] VITALS: BP 136/75
[2021-10-08 22:00] VITALS: BP 117/59
[2021-10-09 05:00] VITALS: BP 121/85
[2021-10-09] MEDS: MEROPENEM 1GM IVPB 100 ML IV SCH ×3 (06:00→21:39)
[2021-10-09] MEDS: SALINE 0.65 % NASAL SPRAY 45ML BOTTLE EACHNOSTRI SCH ×4 (06:04→21:26)
[2021-10-09] MEDS: ACETYLCYSTEINE 20%(200MG/ML) SOL 4ML NEB SCH ×4 (06:44→19:16)
[2021-10-09] MEDS: ALBUTEROL SULF 2.5 MG/0.5ML(0.5%) NEB SOLN NEB SCH ×4 (06:44→19:16)
[2021-10-09] MEDS: BUDESONIDE (INHALATION) 0.5 MG/2 ML NEB NEB SCH ×3 (06:44→19:16)
[2021-10-09] MEDS: ZINC SULFATE 220mg CAP or TAB PO SCH (09:05)
[2021-10-09] MEDS: DexAMETHasone SOD PHOS 4 MG/1ML SDV INJ IV SCH ×2 (09:05→21:27)
[2021-10-09] MEDS: LINEZOLID 600MG/300ML 300 ML IV SCH (09:05)
[2021-10-09] MEDS: POTASSIUM CHL 20 Meq TABLET PO SCH (09:05)
[2021-10-09] MEDS: Ensure HIGH Protein Chocolate 8oz Bottle PO SCH ×3 (09:05→17:54)
[2021-10-09] MEDS: CHOLECALCIFEROL (VITD3) 2,000 UNIT CAP/TAB PO SCH (09:06)
[2021-10-09] MEDS: ENOXAPARIN SOD 40 MG/0.4 ML SYRINGE SC SCH ×2 (09:06→21:27)
[2021-10-09] MEDS: FUROSEMIDE 20 MG TAB PO SCH (09:06)
[2021-10-09] MEDS: FAMOTIDINE (10MG/ML) 2ML VL IV SCH ×2 (10:00→21:39)
[2021-10-09 10:19] VITALS: BP 127/80
[2021-10-09] MEDS ORDERED: POTASSIUM CHL 20 Meq TABLET PO ONE (11:15)
[2021-10-09] MEDS ORDERED: LORazepam 2MG/ML-1ML VIAL IV PRN (11:15)
[2021-10-09] MEDS ORDERED: FUROSEMIDE 20 MG/2 ML VIAL IV ONE (11:15)
[2021-10-09 13:35] VITALS: BP 120/85
[2021-10-09 17:00] VITALS: BP 127/80
[2021-10-09 22:00] VITALS: BP 129/80
[2021-10-10] MEDS: ACETYLCYSTEINE 20%(200MG/ML) SOL 4ML NEB SCH ×4 (00:37→12:00)
[2021-10-10] MEDS: ALBUTEROL SULF 2.5 MG/0.5ML(0.5%) NEB SOLN NEB SCH (00:37)
[2021-10-10 05:00] VITALS: BP 122/86
[2021-10-10] MEDS: MEROPENEM 1GM IVPB 100 ML IV SCH ×3 (05:21→21:14)
[2021-10-10] MEDS: SALINE 0.65 % NASAL SPRAY 45ML BOTTLE EACHNOSTRI SCH ×4 (05:21→21:27)
[2021-10-10] MEDS: LEVALBUTEROL HCL 1.25 MG/3 ML NEB NEB SCH ×3 (07:15→19:54)
[2021-10-10] MEDS: BUDESONIDE (INHALATION) 0.5 MG/2 ML NEB NEB SCH ×2 (07:16→19:54)
[2021-10-10 07:56] LABS: Basophils # (auto) 0 10 ^3/uL (0-0.2); Basophils % (auto) 0.2 % (0.0-2.0); Eosinophils # (auto) 0 10 ^3/uL (0-0.8); Eosinophils % (auto) 0.2 % (0.0-7.0); Hematocrit 43.5 % (41.0-53.0); Hemoglobin 14.3 g/dL (13.5-17.5); Lymphocytes % (auto) 8.8 % (10.0-50.0); Mean Corpuscular Hgb Conc. 32.9 g/dL (32.0-36.0); Mean Corpuscular Volume 94.1 fL (80.0-100.0); Monocytes # (auto) 0.8 10 ^3/uL (0-1.3); Monocytes % (auto) 7.2 % (0.0-12.0); Neutrophils # (auto) 9.4 10 ^3/uL (1.6-8.6); Neutrophils % (auto) 83.6 % (37.0-80.0); Nucleated Red Blood Cells % 0.1 %; Red Blood Cells 4.62 10^6/uL (4.5-5.90); Red Cell Distribution Width 13.4 % (11.8-14.3); White Blood Cell 11.2 10^3/uL (4.4-10.8)
[2021-10-10 08:12] LABS: Calcium 8.7 mg/dL (8.5-10.1); Potassium 4.8 mmol/L (3.5-5.1)
[2021-10-10 08:14] LABS: BUN/Creatinine Ratio 37.1
[2021-10-10 09:00] VITALS: BP 124/75
[2021-10-10] MEDS: DexAMETHasone SOD PHOS 4 MG/1ML SDV INJ IV SCH ×2 (09:21→21:27)
[2021-10-10] MEDS: POTASSIUM CHL 20 Meq TABLET PO SCH (09:22)
[2021-10-10] MEDS: CHOLECALCIFEROL (VITD3) 2,000 UNIT CAP/TAB PO SCH (09:22)
[2021-10-10] MEDS: FUROSEMIDE 20 MG TAB PO SCH (09:22)
[2021-10-10] MEDS: ZINC SULFATE 220mg CAP or TAB PO SCH (09:22)
[2021-10-10] MEDS: ENOXAPARIN SOD 40 MG/0.4 ML SYRINGE SC SCH ×2 (09:23→21:27)
[2021-10-10] MEDS: Ensure HIGH Protein Chocolate 8oz Bottle PO SCH ×3 (09:23→20:08)
[2021-10-10] MEDS: FAMOTIDINE (10MG/ML) 2ML VL IV SCH ×2 (09:35→21:15)
[2021-10-10 12:42] VITALS: BP 130/76
[2021-10-10 17:00] VITALS: BP 119/77
[2021-10-10 21:27] VITALS: BP 114/73
[2021-10-11] MEDS: SALINE 0.65 % NASAL SPRAY 45ML BOTTLE EACHNOSTRI SCH ×4 (04:10→21:10)
[2021-10-11] MEDS: MEROPENEM 1GM IVPB 100 ML IV SCH ×3 (05:02→21:10)
[2021-10-11 05:30] VITALS: BP 114/63
[2021-10-11] MEDS: Ensure HIGH Protein Chocolate 8oz Bottle PO SCH ×3 (08:59→18:27)
[2021-10-11 09:00] VITALS: BP 130/87
[2021-10-11] MEDS: FAMOTIDINE (10MG/ML) 2ML VL IV SCH (09:00)
[2021-10-11] MEDS: ZINC SULFATE 220mg CAP or TAB PO SCH (09:00)
[2021-10-11] MEDS: POTASSIUM CHL 20 Meq TABLET PO SCH (09:00)
[2021-10-11] MEDS: DexAMETHasone SOD PHOS 4 MG/1ML SDV INJ IV SCH ×2 (09:00→21:10)
[2021-10-11] MEDS: FUROSEMIDE 20 MG TAB PO SCH (09:01)
[2021-10-11] MEDS: ENOXAPARIN SOD 40 MG/0.4 ML SYRINGE SC SCH ×2 (09:01→21:09)
[2021-10-11] MEDS: CHOLECALCIFEROL (VITD3) 2,000 UNIT CAP/TAB PO SCH (09:01)
[2021-10-11] MEDS: LEVALBUTEROL HCL 1.25 MG/3 ML NEB NEB SCH ×5 (09:22→23:21)
[2021-10-11] MEDS: BUDESONIDE (INHALATION) 0.5 MG/2 ML NEB NEB SCH ×2 (09:22→18:19)
[2021-10-11] MEDS: ACETYLCYSTEINE 20%(200MG/ML) SOL 4ML NEB SCH ×5 (09:22→23:21)
[2021-10-11] MEDS ORDERED: DOXYCYCLINE 100 MG TAB/CAP PO ONE (11:15)
[2021-10-11 13:00] VITALS: BP 120/61
[2021-10-11 17:00] VITALS: BP 123/88
[2021-10-11] MEDS: DOXYCYCLINE 100 MG TAB/CAP PO SCH (21:09)
[2021-10-12 05:00] VITALS: BP 119/79
[2021-10-12] MEDS: MEROPENEM 1GM IVPB 100 ML IV SCH ×3 (06:00→20:57)
[2021-10-12] MEDS: SALINE 0.65 % NASAL SPRAY 45ML BOTTLE EACHNOSTRI SCH ×4 (06:04→21:00)
[2021-10-12] MEDS: ACETYLCYSTEINE 20%(200MG/ML) SOL 4ML NEB SCH ×3 (07:23→18:16)
[2021-10-12] MEDS: LEVALBUTEROL HCL 1.25 MG/3 ML NEB NEB SCH ×3 (07:23→18:16)
[2021-10-12] MEDS: BUDESONIDE (INHALATION) 0.5 MG/2 ML NEB NEB SCH ×2 (07:24→18:16)
[2021-10-12] MEDS: Ensure HIGH Protein Chocolate 8oz Bottle PO SCH ×3 (08:06→17:41)
[2021-10-12 08:32] VITALS: BP 125/78
[2021-10-12] MEDS ORDERED: POTASSIUM CHL 20 Meq TABLET PO ONE (09:15)
[2021-10-12] MEDS ORDERED: FUROSEMIDE 20 MG/2 ML VIAL IV ONE (09:15)
[2021-10-12] MEDS: ZINC SULFATE 220mg CAP or TAB PO SCH (09:44)
[2021-10-12] MEDS: POTASSIUM CHL 20 Meq TABLET PO SCH (09:44)
[2021-10-12] MEDS: FAMOTIDINE 20 MG TAB PO SCH (09:44)
[2021-10-12] MEDS: DOXYCYCLINE 100 MG TAB/CAP PO SCH ×2 (09:45→21:00)
[2021-10-12] MEDS: CHOLECALCIFEROL (VITD3) 2,000 UNIT CAP/TAB PO SCH (09:45)
[2021-10-12] MEDS: ENOXAPARIN SOD 40 MG/0.4 ML SYRINGE SC SCH ×2 (09:45→21:01)
[2021-10-12] MEDS: DexAMETHasone SOD PHOS 4 MG/1ML SDV INJ IV SCH ×2 (09:46→21:00)
[2021-10-12] MEDS: FUROSEMIDE 20 MG TAB PO SCH (09:47)
[2021-10-12 12:40] VITALS: BP 117/84
[2021-10-12 17:00] VITALS: BP 127/88
[2021-10-12 22:19] VITALS: BP 131/88
[2021-10-13] VITALS (7 sets, daily range): BP systolic 109–149; BP diastolic 58–93
[2021-10-13] MEDS: LEVALBUTEROL HCL 1.25 MG/3 ML NEB NEB SCH ×2 (00:12→19:03)
[2021-10-13] MEDS: ACETYLCYSTEINE 20%(200MG/ML) SOL 4ML NEB SCH (00:12)
[2021-10-13] MEDS: MEROPENEM 1GM IVPB 100 ML IV SCH ×2 (05:01→13:36)
[2021-10-13] MEDS: SALINE 0.65 % NASAL SPRAY 45ML BOTTLE EACHNOSTRI SCH ×4 (05:02→21:05)
[2021-10-13] MEDS: FAMOTIDINE 20 MG TAB PO SCH (10:00)
[2021-10-13] MEDS: DexAMETHasone SOD PHOS 4 MG/1ML SDV INJ IV SCH ×2 (10:00→21:20)
[2021-10-13] MEDS: CHOLECALCIFEROL (VITD3) 2,000 UNIT CAP/TAB PO SCH (10:00)
[2021-10-13] MEDS: ZINC SULFATE 220mg CAP or TAB PO SCH (10:17)
[2021-10-13] MEDS: DOXYCYCLINE 100 MG TAB/CAP PO SCH ×2 (10:18→21:19)
[2021-10-13] MEDS: POTASSIUM CHL 20 Meq TABLET PO SCH (10:18)
[2021-10-13] MEDS: FUROSEMIDE 20 MG TAB PO SCH (10:19)
[2021-10-13] MEDS: ENOXAPARIN SOD 40 MG/0.4 ML SYRINGE SC SCH ×2 (10:19→21:20)
[2021-10-13] MEDS: Ensure HIGH Protein Chocolate 8oz Bottle PO SCH ×3 (10:24→16:55)
[2021-10-13] MEDS: BUDESONIDE (INHALATION) 0.5 MG/2 ML NEB NEB SCH (19:02)
[2021-10-14] MEDS: SALINE 0.65 % NASAL SPRAY 45ML BOTTLE EACHNOSTRI SCH ×4 (05:13→21:23)
[2021-10-14 05:22] VITALS: BP 100/66
[2021-10-14] MEDS: LEVALBUTEROL HCL 1.25 MG/3 ML NEB NEB SCH ×4 (06:01→18:00)
[2021-10-14] MEDS: BUDESONIDE (INHALATION) 0.5 MG/2 ML NEB NEB SCH ×2 (06:01→18:43)
[2021-10-14 09:00] VITALS: BP 126/84
[2021-10-14] MEDS: ZINC SULFATE 220mg CAP or TAB PO SCH (10:00)
[2021-10-14] MEDS: FAMOTIDINE 20 MG TAB PO SCH (10:00)
[2021-10-14] MEDS: DexAMETHasone SOD PHOS 4 MG/1ML SDV INJ IV SCH ×2 (10:57→21:24)
[2021-10-14] MEDS: POTASSIUM CHL 20 Meq TABLET PO SCH (10:57)
[2021-10-14] MEDS: Ensure HIGH Protein Chocolate 8oz Bottle PO SCH ×3 (10:57→17:45)
[2021-10-14] MEDS: FUROSEMIDE 20 MG TAB PO SCH (10:59)
[2021-10-14] MEDS: DOXYCYCLINE 100 MG TAB/CAP PO SCH ×2 (11:01→21:24)
[2021-10-14] MEDS: CHOLECALCIFEROL (VITD3) 2,000 UNIT CAP/TAB PO SCH (11:01)
[2021-10-14] MEDS: ENOXAPARIN SOD 40 MG/0.4 ML SYRINGE SC SCH ×2 (11:03→21:24)
[2021-10-14 12:49] VITALS: BP 146/75
[2021-10-14 17:13] VITALS: BP 130/97
[2021-10-14 22:00] VITALS: BP 147/91
[2021-10-15 05:00] VITALS: BP 118/72
[2021-10-15] MEDS: SALINE 0.65 % NASAL SPRAY 45ML BOTTLE EACHNOSTRI SCH ×4 (06:00→22:28)
[2021-10-15] MEDS: LEVALBUTEROL HCL 1.25 MG/3 ML NEB NEB SCH ×4 (06:10→23:16)
[2021-10-15] MEDS: BUDESONIDE (INHALATION) 0.5 MG/2 ML NEB NEB SCH ×2 (06:11→18:56)
[2021-10-15 09:00] VITALS: BP 132/81
[2021-10-15] MEDS: Ensure HIGH Protein Chocolate 8oz Bottle PO SCH ×3 (09:11→17:42)
[2021-10-15] MEDS: POTASSIUM CHL 20 Meq TABLET PO SCH (09:31)
[2021-10-15] MEDS: ZINC SULFATE 220mg CAP or TAB PO SCH (09:31)
[2021-10-15] MEDS: DexAMETHasone SOD PHOS 4 MG/1ML SDV INJ IV SCH ×2 (09:31→22:22)
[2021-10-15] MEDS: FUROSEMIDE 20 MG TAB PO SCH (09:31)
[2021-10-15] MEDS: ENOXAPARIN SOD 40 MG/0.4 ML SYRINGE SC SCH ×2 (09:32→22:22)
[2021-10-15] MEDS: FAMOTIDINE 20 MG TAB PO SCH (09:32)
[2021-10-15] MEDS: CHOLECALCIFEROL (VITD3) 2,000 UNIT CAP/TAB PO SCH (09:32)
[2021-10-15] MEDS: DOXYCYCLINE 100 MG TAB/CAP PO SCH ×2 (09:32→22:22)
[2021-10-15 13:00] VITALS: BP 139/73
[2021-10-15 17:00] VITALS: BP 119/95
[2021-10-15 21:39] VITALS: BP 105/79
[2021-10-16 05:05] VITALS: BP 124/56
[2021-10-16] MEDS: SALINE 0.65 % NASAL SPRAY 45ML BOTTLE EACHNOSTRI SCH ×4 (05:32→22:12)
[2021-10-16] MEDS: LEVALBUTEROL HCL 1.25 MG/3 ML NEB NEB SCH ×3 (07:04→18:00)
[2021-10-16] MEDS: BUDESONIDE (INHALATION) 0.5 MG/2 ML NEB NEB SCH ×2 (07:05→22:03)
[2021-10-16] MEDS: Ensure HIGH Protein Chocolate 8oz Bottle PO SCH ×3 (08:00→17:24)
[2021-10-16 09:00] VITALS: BP 126/79
[2021-10-16] MEDS: DOXYCYCLINE 100 MG TAB/CAP PO SCH ×2 (09:59→22:12)
[2021-10-16] MEDS: FUROSEMIDE 20 MG TAB PO SCH (09:59)
[2021-10-16] MEDS: POTASSIUM CHL 20 Meq TABLET PO SCH (09:59)
[2021-10-16] MEDS: DexAMETHasone SOD PHOS 4 MG/1ML SDV INJ IV SCH (09:59)
[2021-10-16] MEDS: ENOXAPARIN SOD 40 MG/0.4 ML SYRINGE SC SCH ×2 (09:59→22:12)
[2021-10-16] MEDS: FAMOTIDINE 20 MG TAB PO SCH (09:59)
[2021-10-16 13:00] VITALS: BP 139/97
[2021-10-16 17:00] VITALS: BP_SYST 113; BP_SYST 136; BP_DIAS 71; BP_DIAS 90
[2021-10-16 22:00] VITALS: BP 141/91
[2021-10-17 00:59] VITALS: BP 141/91
[2021-10-17 05:00] VITALS: BP 112/72
[2021-10-17] MEDS: LEVALBUTEROL HCL 1.25 MG/3 ML NEB NEB SCH ×2 (05:54)
[2021-10-17] MEDS: BUDESONIDE (INHALATION) 0.5 MG/2 ML NEB NEB SCH ×2 (05:54→20:49)
[2021-10-17] MEDS: SALINE 0.65 % NASAL SPRAY 45ML BOTTLE EACHNOSTRI SCH ×4 (06:00→22:00)
[2021-10-17 09:02] VITALS: BP 123/88
[2021-10-17] MEDS: Ensure HIGH Protein Chocolate 8oz Bottle PO SCH ×3 (09:36→18:00)
[2021-10-17] MEDS: POTASSIUM CHL 20 Meq TABLET PO SCH (09:36)
[2021-10-17] MEDS: DexAMETHasone SOD PHOS 4 MG/1ML SDV INJ IV SCH (09:36)
[2021-10-17] MEDS: ENOXAPARIN SOD 40 MG/0.4 ML SYRINGE SC SCH ×2 (09:37→22:00)
[2021-10-17] MEDS: DOXYCYCLINE 100 MG TAB/CAP PO SCH ×2 (09:37→22:00)
[2021-10-17] MEDS: FUROSEMIDE 20 MG TAB PO SCH (09:37)
[2021-10-17] MEDS: FAMOTIDINE 20 MG TAB PO SCH (09:37)
[2021-10-17 10:05] LABS: Basophils # (auto) 0.1 10 ^3/uL (0-0.2); Basophils % (auto) 0.7 % (0.0-2.0); Eosinophils # (auto) 0.1 10 ^3/uL (0-0.8); Eosinophils % (auto) 0.5 % (0.0-7.0); Hematocrit 44.2 % (41.0-53.0); Hemoglobin 14.7 g/dL (13.5-17.5); Lymphocytes # (auto) 2.1 10 ^3/uL (0.4-5.4); Lymphocytes % (auto) 12.8 % (10.0-50.0); Mean Corpuscular Hemoglobin 30.9 pg (28.0-32.0); Mean Corpuscular Hgb Conc. 33.3 g/dL (32.0-36.0); Monocytes % (auto) 6.3 % (0.0-12.0); Neutrophils # (auto) 12.9 10 ^3/uL (1.6-8.6); Neutrophils % (auto) 79.7 % (37.0-80.0); Nucleated Red Blood Cells % 0.1 %; Red Blood Cells 4.75 10^6/uL (4.5-5.90); White Blood Cell 16.1 10^3/uL (4.4-10.8)
[2021-10-17 10:06] LABS: Potassium 4.5 mmol/L (3.5-5.1)
[2021-10-17 10:13] LABS: Albumin 2.7 g/dL (3.4-5.0); BUN/Creatinine Ratio 47.3; Bilirubin, Total 0.3 mg/dL (0.2-1.0); Total Protein 6.8 g/dL (6.4-8.2)
[2021-10-17] MEDS ORDERED: POTASSIUM CHL 20 Meq TABLET PO ONE (10:15)
[2021-10-17] MEDS ORDERED: FUROSEMIDE 20 MG/2 ML VIAL IV ONE (10:15)
[2021-10-17 12:56] VITALS: BP 141/91
[2021-10-17 17:21] VITALS: BP 135/87
[2021-10-17 22:00] VITALS: BP 114/67
[2021-10-18 05:07] VITALS: BP 113/71
[2021-10-18] MEDS: SALINE 0.65 % NASAL SPRAY 45ML BOTTLE EACHNOSTRI SCH ×4 (06:00→22:00)
[2021-10-18] MEDS: Ensure HIGH Protein Chocolate 8oz Bottle PO SCH ×3 (08:59→18:42)
[2021-10-18 09:00] VITALS: BP 117/78
[2021-10-18] MEDS: FAMOTIDINE 20 MG TAB PO SCH (10:00)
[2021-10-18] MEDS: FUROSEMIDE 20 MG TAB PO SCH (10:07)
[2021-10-18] MEDS: POTASSIUM CHL 20 Meq TABLET PO SCH (10:07)
[2021-10-18] MEDS: DexAMETHasone SOD PHOS 4 MG/1ML SDV INJ IV SCH (10:07)
[2021-10-18] MEDS: DOXYCYCLINE 100 MG TAB/CAP PO SCH ×2 (10:07→21:25)
[2021-10-18] MEDS: ENOXAPARIN SOD 40 MG/0.4 ML SYRINGE SC SCH (10:08)
[2021-10-18 13:00] VITALS: BP 131/92
[2021-10-18 17:00] VITALS: BP 118/88
[2021-10-18 21:20] VITALS: BP 108/77
[2021-10-18] MEDS: BUDESONIDE (INHALATION) 0.5 MG/2 ML NEB NEB SCH (21:43)
[2021-10-19 05:23] VITALS: BP 125/78
[2021-10-19] MEDS: SALINE 0.65 % NASAL SPRAY 45ML BOTTLE EACHNOSTRI SCH ×3 (06:00→17:43)
[2021-10-19 09:16] VITALS: BP 128/87
[2021-10-19 09:23] VITALS: BP 128/87
[2021-10-19] MEDS: DexAMETHasone SOD PHOS 4 MG/1ML SDV INJ IV SCH (09:59)
[2021-10-19] MEDS: POTASSIUM CHL 20 Meq TABLET PO SCH (10:00)
[2021-10-19] MEDS: FAMOTIDINE 20 MG TAB PO SCH (10:00)
[2021-10-19] MEDS: FUROSEMIDE 20 MG TAB PO SCH (10:01)
[2021-10-19] MEDS: DOXYCYCLINE 100 MG TAB/CAP PO SCH (10:05)
[2021-10-19] MEDS: ENOXAPARIN SOD 40 MG/0.4 ML SYRINGE SC SCH (10:06)
[2021-10-19] MEDS: Ensure HIGH Protein Chocolate 8oz Bottle PO SCH ×3 (10:09→17:43)
[2021-10-19] MEDS: BUDESONIDE (INHALATION) 0.5 MG/2 ML NEB NEB SCH (10:41)
[2021-10-19 12:23] VITALS: BP 130/79
[2021-10-19 17:10] VITALS: BP 130/79
== END 2021-10-19 18:55 | disposition home or self-care (01) | DRG 871 ==
LOC: ER 06:39 → TELE 09:44 → TELE-EAST 21:05 → TELE-CENTR 10-11 21:32
PROVIDERS: ADMIT Hospitalist; ATTEND Internal Medicine
PROC: XW033E5 Introduction of Remdesivir Anti-infective into Peripheral Vein, Percutaneous Approach, New Technology Group 5 (ICD-10-PCS; principal; 2021-09-24)
PROC: XW033H5 Introduction of Tocilizumab into Peripheral Vein, Percutaneous Approach, New Technology Group 5 (ICD-10-PCS; 2021-10-01)
PROC: 5A0935A Assistance with Respiratory Ventilation, Less than 24 Consecutive Hours, High Flow/Velocity Cannula (ICD-10-PCS; 2021-10-12)
PROC: 5A0935A Assistance with Respiratory Ventilation, Less than 24 Consecutive Hours, High Flow/Velocity Cannula (ICD-10-PCS; 2021-10-13)
PROC: 5A0935A Assistance with Respiratory Ventilation, Less than 24 Consecutive Hours, High Flow/Velocity Cannula (ICD-10-PCS; 2021-10-14)
PROC: 5A0935A Assistance with Respiratory Ventilation, Less than 24 Consecutive Hours, High Flow/Velocity Cannula (ICD-10-PCS; 2021-10-15)
PROC: 5A0935A Assistance with Respiratory Ventilation, Less than 24 Consecutive Hours, High Flow/Velocity Cannula (ICD-10-PCS; 2021-10-16)
PROC: 5A0935A Assistance with Respiratory Ventilation, Less than 24 Consecutive Hours, High Flow/Velocity Cannula (ICD-10-PCS; 2021-10-17)
DX: A41.89 Other specified sepsis (principal); J12.82 Pneumonia due to coronavirus disease 2019; J96.01 Acute respiratory failure with hypoxia; U07.1 COVID-19; D89.839 Cytokine release syndrome, grade unspecified; E88.09 Other disorders of plasma-protein metabolism, not elsewhere classified; R65.20 Severe sepsis without septic shock; Z79.82 Long term (current) use of aspirin; Z90.49 Acquired absence of other specified parts of digestive tract
CPT/HCPCS: 36415; 36600; 71045; 71275; 80048; 80053; 80061; 81001; 82306; 82728; 82805; 83036; 83605; 83615; 83735; 83880; 84100; 84132; 84439; 84443; 84484; 85007; 85025; 85027; 85379; 85610; 85730; 86141; 87040; 87086; 87426; 93005; 94640; 96365; 96367; 96375; 97110; 97116; 97163; 97530; 99291; G0378; J0696; J1100; J2185; J2405; J3490

== ENCOUNTER 2025-08-27 09:30 | Emergency (ER) | payer BC, OTHER ==
[~2025-08-27] VITALS: Ht 185.4 cm; Wt 75.2 kg
--- NOTE | 2025-08-27 10:12 | ED.PDOC ---
GI ASSESSMENT HPI Comments 50 y.o male presents to the ED for a chief complaint of rectal bleeding x this morning. Patient reports while using the restroom, noticed bright red blood with clotting output. Patient has no associating symptoms such as nausea, vomiting, diarrhea, fever, or chills. Patient mentions history of RUQ pain that is well controlled with a healthy diet and at this time presents with no abdominal pain. He does mention frequent alcohol use, about 5 drinks per week consisting or 2 servings of whiskey at night time. Chief Complaint: GI Bleed Time Seen by MD: 09:47 Reviewed Notes: Nurses Notes, Medications, Allergies Allergies: Coded Allergies: NO KNOWN ALLERGIES (Unverified , 09/24/21) Home Meds No Active Prescriptions or Reported Meds Information Source: Patient Mode of Arrival: Ambulatory Timing: Hours Duration: Since onset Quality: None Vomitus: None Stool: Blood Streaked Severity: Moderate Recent: None Recent Hx of: None Pain Location: None Modifying Factors: Nothing Associated sign and symptoms: Hematochezia, Blood in Stool Past Medical History PAST MEDICAL HISTORY: Denies Surgical History: Appendectomy Family History Family History: Reviewed,noncontributory to illness Social History Smoker: Non-Smoker Alcohol: Other (frequent ) Drugs: Denies Drug Use Lives In: Home Constitutional: denies: chills, diaphoresis, fatigue, fever, malaise, sweats, weakness, others EENTM: denies: blurred vision, double vision, ear bleeding, ear discharge, ear drainage, ear pain, ear ringing, eye pain, eye redness, hearing loss, mouth pain, mouth swelling, nasal discharge, nose bleeding, nose congestion, nose pain, photophobia, tearing, throat pain, throat swelling, voice changes, others Respiratory: denies: cough, hemoptysis, orthopnea, SOB at rest, shortness of breath, SOB with excertion, stridor, wheezing, others Cardiovascular: denies: chest pain, dizzy spells, diaphoresis, Dyspnea on exertion, edema, irregular heart beat, left arm pain, lightheadedness, palp itations, PND, syncope, others Gastrointestinal: reports: rectal bleeding; denies: abdomen distended, abdominal pain, blood streaked bowels, constipated, diarrhea, dysphagia, difficulty swallowing, hematemesis, melena, nausea, poor appetite, poor fluid intake, rectal pain, vomiting, others Genitourinary: denies: burning, dysuria, flank pain, frequency, hematuria, incontinence, penile discharge, penile sore, pain, testicle pain, testicle swelling, urgency, others Neurological: denies: dizziness, fainting, headache, left sided numbness, left sided weakness, numbness, paresthesia, pre-existing deficit, right sided numbness, right sided weakness, seizure, speech problems, tingling, tremors, weakness, others Musculoskeletal: denies: back pain, gout, joint pain, joint swelling, muscle pain, muscle stiffness, neck pain, others Integumetry: denies: bruises, change in color, change in hair/nails, dryness, laceration, lesions, lumps, rash, wounds, others Allergic/Immunocompromised: denies: Difficulty Healing, Frequent Infections, Hives, Itching, others Hematologic/Lymphatic: denies: anemia, blood clots, easy bleeding, easy bruising, swollen glands, others Endocrine: denies: excessive hunger, excessive sweating, excessive thirst, excessive urination, flushing, intolerance to cold, intolerance to heat, unexplained weight gain, unexplained weight loss, others Psychiatric: denies: anxiety, bipolar disorder, depression, hopeless, panic disorder, schizophrenia, sleepless, suicidal, others All Other Systems: Reviewed and Negative Physical Exam General Appearance: Moderate Distress HEENT: Normal ENT Inspection, Pharynx Normal, TMs Normal Neck: Full Range of Motion, Non-Tender, Normal, Normal Inspection Respiratory: Chest Non-Tender, Lungs Clear, No Accessory Muscle Use, No Respiratory Distress, Normal Breath Sounds Cardiovascular: No Edema, No JVD, No Murmur, No Gallop, Normal Peripheral Pulses, Regular Rate/Rhythm Breast Exam: Deferred Gastrointestinal: No Organomegaly, Non Tender, No Pulsatile Mass, Normal Bowel Sounds, Soft Genitalia: Deferred Pelvic: Deferred Rectal: Deferred Extremities: No calf tenderness, Normal capillary refill, Normal inspection, Normal range of motion, Non-tender, No pedal edema Musculoskeletal : Apperance: Normal Neurologic: Alert, package handler II-XII nml as Tested, No Motor Deficits, Normal Affect, Normal Mood, No Sensory Deficits Cerebellar Function: Normal Reflexes: Normal Skin: Dry, Normal Color, Warm Peripheral Pulses: 3+ Radial (R), 3+ Radial (L) Lymphatic: No Adenopathy Was a procedure done? Was a procedure done?: No GI differential Dx Differential Diagnosis: Constipation, Diverticular disease, Esophagitis, Gastritis/PUD, Gastroenteritis, Esophageal Varicies, Stress Ulcer Other Differential Diagnosis hemorrhoids X-Ray, Labs, Meds, VS Vital Signs Date Time Temp Pulse Resp B/P (MAP) Pulse Ox O2 Delivery O2 Flow Rate FiO2 08/27/25 09:32 97.8 78 18 153/89 97 97.8 Lab Test 08/27/25 10:32 Range/Units White Blood Count 4.6 4.4-10.8 10^3/uL Red Blood Count 4.89 4.5-5.90 10^6/uL Hemoglobin 15.9 13.5-17.5 g/dL Hematocrit 46.0 41.0-53.0 % Mean Corpuscular Volume 94.2 80.0-100.0 fL Mean Corpuscular Hemoglobin 32.5 H 28.0-32.0 pg Mean Corpuscular Hemoglobin Concent 34.5 32.0-36.0 g/dL Red Cell Distribution Width 13.3 11.8-14.3 % Platelet Count 215 140-450 10^3/uL Mean Platelet Volume 8.8 6.9-10.8 fL Neutrophils (%) (Auto) 62.9 37.0-80.0 % Lymphocytes (%) (Auto) 26.2 10.0-50.0 % Monocytes (%) (Auto) 9.1 0.0-12.0 % Eosinophils (%) (Auto) 1.2 0.0-7.0 % Basophils (%) (Auto) 0.6 0.0-2.0 % Neutrophils # (Auto) 2.9 1.6-8.6 10 ^3/uL Lymphocytes # (Auto) 1.2 0.4-5.4 10 ^3/uL Monocytes # (Auto) 0.4 0-1.3 10 ^3/uL Eosinophils # (Auto) 0.1 0-0.8 10 ^3/uL Basophils # (Auto) 0 0-0.2 10 ^3/uL Nucleated Red Blood Cells 0.1 % Sodium Level 140 136-145 mmol/L Potassium Level 4.4 3.5-5.1 mmol/L Chloride Level 105 98-107 mmol/L Carbon Dioxide Level 27 20-31 mmol/L Anion Gap 8 5-15 Blood Urea Nitrogen 12 9-23 mg/dL Creatinine 0.99 0.700-1.30 mg/dL Glomerular Filtration Rate Calc 92 >90 mL/min BUN/Creatinine Ratio 12.1 10.0-20.0 Serum Glucose 101 74-106 mg/dL Calcium Level 10.1 8.7-10.4 mg/dL Patient alert. Came in because of bright red blood per rectum. Vitals stable. Answering questions. Abdomen is soft tender on deep palpation. Possible hemorrhoids. He will need colonoscopy. Was given Protonix. Explained to the patient. Continue to monitoring. Time of 1ST Reevaluation: 10:12 Reevaluation 1ST: Unchanged Patient Education/Counseling: Diagnosis, Treatment, Prognosis Family Education/Counseling: No Family Present SEPSIS Sepsis Screen Date sepsis recognized/suspect: Aug 27, 2025 Time Sepsis recognized/suspect: 933 Recent Procedure: No On Antibiotic Therapy: No Respiratory Rate >20: No Heart Rate >90: No Temp<36 C (96.8 F) or >38.3 C: No SBP <90 or MAP <65 mmHG: No New Acute Mental Status Change: No Is the patient on CPAP, BIPAP,: No Vital Signs Date Time Temp Pulse Resp B/P (MAP) Pulse Ox O2 Delivery O2 Flow Rate FiO2 08/27/25 09:32 97.8 78 18 153/89 97 97.8 Laboratory Tests Test 08/27/25 10:32 White Blood Count 4.6 10^3/uL (4.4-10.8) Departure 1 Departure Time of Disposition: 11:20 Impression: Primary Impression: GI bleed Qualified Codes: K92.2 - Gastrointestinal hemorrhage, unspecified Disposition: 09 ADMITTED INPATIENT Admit to: Med Surg Condition: Guarded e-Prescriptions No Active Prescriptions or Reported Meds Critical Care Note Critical Care Time?: No Stability Stability form required: No I personally scribed for ANI RUIZ MD ([email or web address]) on 08/27/25 at 10:12. Electronically submitted by Ros Huggins ([facility]). ANI RUIZ MD Aug 27, 2025 10:12
[2025-08-27 10:44] LABS: Chloride 105 mmol/L (98-107); Potassium 4.4 mmol/L (3.5-5.1); Sodium 140 mmol/L (136-145)
[2025-08-27 10:45] LABS: Anion Gap 8 (5-15); Carbon Dioxide 27 mmol/L (20-31)
[2025-08-27 10:46] LABS: Calcium 10.1 mg/dL (8.7-10.4); Hematocrit 46.0 % (41.0-53.0); Hemoglobin 15.9 g/dL (13.5-17.5); Mean Corpuscular Hemoglobin 32.5 pg (28.0-32.0); Mean Corpuscular Volume 94.2 fL (80.0-100.0); Nucleated Red Blood Cells % 0.1 %
[2025-08-27 10:50] LABS: BUN/Creatinine Ratio 12.1 (10.0-20.0); Blood Urea Nitrogen 12 mg/dL (9-23); Glucose 101 mg/dL (74-106)
[2025-08-27 11:20] VITALS: BP 148/96; PULSE 82; RESP 16; TEMP 98.1; O2SAT 95
== END 2025-08-27 13:18 | disposition left against medical advice (07) ==
LOC: ER 09:30
DX: K92.2 Gastrointestinal hemorrhage, unspecified (principal); Z90.49 Acquired absence of other specified parts of digestive tract
CPT/HCPCS: 36415; 80048; 85025